=== PATIENT | female | born 1955 | race African-American/Black ===

== ENCOUNTER 2018-02-19 17:46 | Emergency (ER) | payer OTHER ==
[~2018-02-19] VITALS: Ht 167.6 cm; Wt 125.2 kg
[2018-02-19 18:42] LABS: ABSOLUTE NEUTROPHILS 3.5 thou/uL (1.4-8.2); BASOPHILS 1.1 % (0.0-2.0); EOSINOPHILS 4.7 % (0.0-3.0); HEMATOCRIT 34.8 % (37.0-47.0); HEMOGLOBIN 11.3 gm/dL (12.0-15.0); MCH 26.8 pg (26.0-34.0); MCHC 32.5 g/dL (28.0-37.0); MCV 82.4 fL (80.0-100.0); PLATELET COUNT 304 thou/uL (150-400); POLYS 48.2 % (36.0-66.0); RBC 4.22 mil/uL (4.20-5.00); RDW 17.2 % (10.5-14.5); WBC 7.4 thou/uL (4.0-11.0)
[2018-02-19] MEDS ORDERED: METOPROLOL SUC200 MG PO (18:42)
[2018-02-19] MEDS ORDERED: LISINOPRIL40 MG PO (18:42)
[2018-02-19] MEDS ORDERED: TRAMADOL 50 MG50 MG PO (18:42)
[2018-02-19] MEDS ORDERED: CLONAZEPAM 0.50.5 M1 PO (18:43)
[2018-02-19] MEDS ORDERED: PAROXETINE HCL40 MG PO (18:44)
[2018-02-19] MEDS ORDERED: NEXIUM40 MG PO (18:44)
[2018-02-19] MEDS ORDERED: METFORMIN HCL1000 MG PO (18:44)
[2018-02-19] MEDS ORDERED: IRON325 PO (18:44)
[2018-02-19] MEDS ORDERED: NORVASC5 MG PO (18:44)
[2018-02-19] MEDS ORDERED: CLONIDINE HCL0.1 MG PO (18:45)
[2018-02-19] MEDS ORDERED: ASPIRIN81 M2 PO (18:45)
[2018-02-19] MEDS ORDERED: ATORVASTATIN CA40 MG PO (18:46)
[2018-02-19 18:47] LABS: CALCIUM 8.5 mg/dL (8.5-10.1); CREATININE 1.4 mg/dL (0.6-1.0)
[2018-02-19] MEDS ORDERED: HUMALOG KW100 UNIT/1 (18:47)
[2018-02-19] MEDS ORDERED: ZOFRAN4 MG PO (19:05)
[2018-02-19] MEDS ORDERED: LOPERAMIDE 2 MG2 M1 PO (19:05)
[2018-02-19 19:50] VITALS: BP 176/65
== END 2018-02-19 19:43 | disposition home or self-care (01) ==
LOC: ER 17:46
PROVIDERS: Student in an Organized Health Care Education/Training Program
DX: R11.2 Nausea with vomiting, unspecified (principal); R19.7 Diarrhea, unspecified; I10 Essential (primary) hypertension; E78.00 Pure hypercholesterolemia, unspecified; E11.9 Type 2 diabetes mellitus without complications; Z87.891 Personal history of nicotine dependence; Z90.710 Acquired absence of both cervix and uterus; Z90.49 Acquired absence of other specified parts of digestive tract; Z79.4 Long term (current) use of insulin

== ENCOUNTER 2018-02-27 12:07 | Emergency (ER) | payer OTHER ==
[~2018-02-27] VITALS: Ht 170.2 cm; Wt 125.2 kg
[~2018-02-27 12:07] MED LIST: ASPIRIN81 M2 PO; ATORVASTATIN CA40 MG PO; CLONAZEPAM 0.50.5 M1 PO; CLONIDINE HCL0.1 MG PO; HUMALOG KW100 UNIT/1; IRON325 PO; LISINOPRIL40 MG PO; LOPERAMIDE 2 MG2 M1 PO; METFORMIN HCL1000 MG PO; METOPROLOL SUC200 MG PO; NEXIUM40 MG PO; NORVASC5 MG PO; PAROXETINE HCL40 MG PO; TRAMADOL 50 MG50 MG PO; ZOFRAN4 MG PO
[2018-02-27 13:32] LABS: ABSOLUTE NEUTROPHILS 3.8 thou/uL (1.4-8.2); BASOPHILS 1.2 % (0.0-2.0); EOSINOPHILS 3.3 % (0.0-3.0); HEMATOCRIT 36.7 % (37.0-47.0); HEMOGLOBIN 11.9 gm/dL (12.0-15.0); LYMPHOCYTES 36.1 % (24.0-44.0); MCH 26.7 pg (26.0-34.0); MCHC 32.3 g/dL (28.0-37.0); MCV 82.5 fL (80.0-100.0); MONOCYTES 6.5 % (1.0-8.0); PLATELET COUNT 237 thou/uL (150-400); POLYS 52.9 % (36.0-66.0); RBC 4.45 mil/uL (4.20-5.00); RDW 16.9 % (10.5-14.5); WBC 7.3 thou/uL (4.0-11.0)
[2018-02-27 13:46] LABS: ANION GAP 6 mmol/L (7-16); BUN 11 mg/dL (7-18); CALCIUM 9.2 mg/dL (8.5-10.1); CHLORIDE 105 mmol/L (98-107); CO2 29 mmol/L (21-32); CREATININE 1.1 mg/dL (0.6-1.0); GLUCOSE 81 mg/dL (74-106); POTASSIUM 4.4 mmol/L (3.5-5.1); SODIUM 140 mmol/L (136-145)
[2018-02-27 13:52] LABS: ALBUMIN 3.4 g/dL (3.4-5.0); SGOT 20 U/L (15-37); SGPT 13 U/L (30-65); TOTAL BILIRUBIN 0.4 mg/dL (<0.1-1.0); TOTAL PROTEIN 7.6 g/dL (6.4-8.2); TROPONIN-I <0.06 ng/mL (<0.06)
[2018-02-27] MEDS ORDERED: PREDNISONE 20 M20 MG PO (14:45)
[2018-02-27] MEDS ORDERED: TESSALON PERLE100 MG PO (14:45)
[2018-02-27] MEDS ORDERED: VENTOLIN HFA 1818 GM INH (14:45)
[2018-02-27 14:55] VITALS: BP 182/63
--- NOTE | 2018-02-28 08:35 | EKG ---
[place] [address] [facility] [place] [address] ELECTROCARDIOGRAM REPORT Name: MARIELOS BARRETT Room #: [facility] NATI Bryant#: [id number] Admission: 02/27/18 Attend Phys: Discharge: 02/27/18 Date of : 59 Report #: [id number] THIS REPORT FOR: //name// [facility] ED Test Date: 2018-02-27 Test Time: 14:28:06 Pat Name: MARIELOS BARRETT Department: Room: Gender: F Arch Support Technician: EARL : 1955 Requested By: Shamika Villela Order Number: [id number] MD: Kd Ariza Measurements Intervals [place] Rate: 55 P: 12 SD: 143 QRS: 44 QRSD: 97 T: 47 QT: 453 QTc: 434 Interpretive Statements Sinus bradycardia Otherwise normal tracing No previous ECG available for comparison Electronically Signed On 02-28-2018 8:35:24 [employer] by Kd Ariza [email or web address] <ELECTRONICALLY SIGNED> By: Kd Ariza MD, [facility] 02/28/18 0835 1428 1428 Kd Ariza MD, FACC /EPI
== END 2018-02-27 14:55 | disposition home or self-care (01) ==
LOC: ER 12:07
PROVIDERS: Emergency Medicine
DX: J40 Bronchitis, not specified as acute or chronic (principal); I10 Essential (primary) hypertension; Z90.49 Acquired absence of other specified parts of digestive tract; Z90.710 Acquired absence of both cervix and uterus; Z87.891 Personal history of nicotine dependence